=== PATIENT | female | born 1940 | race Asian ===

== ENCOUNTER → 2019-04-20 | Outpatient (CLI) | payer OTHER ==
[~2019-04-20] MED LIST: REGADENOSON 0.4 MG/5 ML DISP.SYRIN. IV ONE
--- NOTE | 2019-04-21 10:24 | PCVCIMAG ---
APPROVED REPORT Imaging Protocol: Rest Tc-99m/Stress Tc-99m 1 day Study performed: 04/20/2019 09:23:08 Indication: CAD , Dyspnea, Pre-Operative CV evaluation Patient Location: Out-Patient Stress Nurse: Ana Rosa Omledo RN, Marielena Mejía RN MS Tech:Carole NICHOLAS Jean Ht: 5 ft 0 in Wt: 114 lbs BSA: 1.47 m2 HR: 93 bpm BP: 172/81 mmHg BMI: 22.26 Rhythm: Sinus Rhythm Medical History Medical History: Hyperlipidemia, HTN Medications: Amlodipine, Metoprolol, Lisinopril, Atorvastatin Allergies: No known drug allergies Cardiac Risk Factors: Age Previous Cardiac Procedures: 2003 Pretest Chest Pain Characteristics: PCI Exercise History: Sedentary Meds Held (24 hrs): Metoprolol Resting Data Rest SPECT myocardial perfusion imaging was performed in supine position 45 minutes following the intravenous injection of 9.1 mCi of Tc-99m Sestamibi. Time of rest injection: 0845 Date: 04/20/2019 Administration Route: IV Administration Site: Right AC Pharmacologic Stress Pharmacologic stress test was performed by injecting Regadenoson 0.4 mg IV push over 10-15 seconds immediately followed by the intravenous injection of 33.1 mCi of Tc-99m Sestamibi. Time of stress injection: 1010 Date: 04/20/2019 Administration Route: IV Administration Site: Right AC Gated Stress SPECT was performed 45 minutes after stress injection. The images were gated to evaluate regional wall motion and calculate left ventricular ejection fraction. Stress Test Details Stress Test: Pharmacologic stress testing performed using 0.4 mg of regadenoson per 5 mL given IV over 10 seconds. Reason for pharmacologic stress test: physical limitation, Sun is wheelchair bound.. HRMax Heart Rate (APMHR): 140 bpm Resting HR: 93 bpmTarget HR (85% APMHR): 119 bpm Max HR Achieved: 102 bpm % of APMHR: 72 Recovery HR: 98 bpm BP Resting BP: 172/81 mmHg Max BP: 199/89 mmHg Recovery BP: 165/73 mmHg ECG Resting ECG: Sinus Rhythm Stress ECG: Sinus Tachycardia ST Change: Non-ischemic Recovery ECG: Sinus Rhythm Clinical Reason for Termination: Completed protocol Stress Symptoms: Dyspnea Symptoms resolved with caffeine. Study Quality Study: Good Artifact: Mild Breast artifact Study Data Post stress, the left ventricular ejection was 67%.. SSS: 2 SRS: 3 SDS: 0 Perfusion There is a small area of mildly reduced uptake in the apical segment of the anterior wall which is seen on the stress images as well as the resting images. This area thickens and moves normally and is most consistent with attenuation artifact. Wall Motion Normal left ventricular wall motion. Nuclear Conclusion ECG Findings: negative for ischemia Clinical Findings: non-diagnostic Nuclear Findings: negative for ischemia Exercise Capacity: not assessed Left Ventricular Function: normal Risk Study: low This study is of low probability for inducible ischemia or prior infarct. Normal global and segmental LV systolic function. Artifact: Mild Breast artifact
== END | disposition home or self-care (01) ==
LOC: PCVCIMAG 08:10
PROVIDERS: ATTEND Internal Medicine Cardiovascular Disease
DX: Z01.818 Encounter for other preprocedural examination (principal); I25.10 Atherosclerotic heart disease of native coronary artery without angina pectoris; R06.00 Dyspnea, unspecified; Z78.0 Asymptomatic menopausal state
CPT/HCPCS: 78452; 93017; A9500; J2785